=== PATIENT | male | born 1955 | race Caucasian/White ===

== ENCOUNTER 2022-09-03 06:51 | Outpatient (CLI) | payer BC | END 2022-09-03 20:20 | disposition home or self-care (01) | LOC: SNM 06:51 | PROVIDERS: ATTEND Urology Pediatric Urology | DX: C61 Malignant neoplasm of prostate (principal); M19.012 Primary osteoarthritis, left shoulder; M19.011 Primary osteoarthritis, right shoulder; M46.1 Sacroiliitis, not elsewhere classified; M16.12 Unilateral primary osteoarthritis, left hip | CPT/HCPCS: 78306; A9503 ==

== ENCOUNTER 2023-06-29 10:52 | Emergency (ER) | payer BC ==
[~2023-06-29] VITALS: Ht 170.2 cm; Wt 68.0 kg
[2023-06-29 11:53] VITALS: BP_SYST 173; PULSE 77; RESP 18; TEMP 96.5; O2SAT 95
[2023-06-29] MEDS ORDERED: CIPR500T5 PO (14:05)
[2023-06-29 14:42] VITALS: BP_SYST 154; PULSE 82; RESP 18; TEMP 97.4; O2SAT 97
== END 2023-06-29 14:44 | disposition home or self-care (01) ==
LOC: SED 10:52
DX: R33.9 Retention of urine, unspecified (principal); I10 Essential (primary) hypertension; Z85.46 Personal history of malignant neoplasm of prostate; Z79.899 Other long term (current) drug therapy
CPT/HCPCS: 99284